=== PATIENT | female | born 1940 | race Two or more races ===

== ENCOUNTER → 2021-10-02 | Emergency (ER) | payer MEDICARE, OTHER ==
[~2021-10-02] VITALS: Ht 165.1 cm; Wt 72.6 kg
[~2021-10-02] MED LIST: HYDR-4209 PO; HYDROMORPHONE 1 MG/1 ML DISP.SYRIN IM ONE; HYDROMORPHONE 1 MG/1 ML DISP.SYRIN ONE; ONDANSETRON 4 MG TAB.RAPDIS ONE; ONDANSETRON 4 MG TAB.RAPDIS SL ONE
--- NOTE | 2021-10-02 22:30 | NUR ---
PATIENT BIBRA 889 FROM HOME FOR C/O RLE PAIN AND BACK PAIN FOR THE PAST FEW DAYS. PATIENT IS A/O X 4, RR EVEN AND UNLABORED, NO SOB NOTE. PATIENT TAKEN TO ER BED 10, VSS.
--- NOTE | 2021-10-02 22:52 | NUR ---
RAD AT BEDSIDE
--- NOTE | 2021-10-02 23:41 | NUR ---
Patient discharged to home in stable condition. RX Written and verbal after care instructions given. Patient verbalizes understanding of instruction. DC via W/C with family member
[2021-10-02 23:42] VITALS: BP 147/76
== END | disposition home or self-care (01) ==
LOC: ER 21:21
DX: M25.551 Pain in right hip (principal); M54.50 Low back pain, unspecified; I10 Essential (primary) hypertension; M19.90 Unspecified osteoarthritis, unspecified site; G30.9 Alzheimer's disease, unspecified; F02.80 Dementia in other diseases classified elsewhere, unspecified severity, without behavioral disturbance, psychotic disturbance, mood disturbance, and anxiety
CPT/HCPCS: 99283; 96372; 73502; Q0162; J1170

== ENCOUNTER 2021-11-01 21:02 | Inpatient (IN) | payer MEDICARE, OTHER ==
[~2021-11-01] VITALS: Ht 165.1 cm; Wt 55.8 kg
[~2021-11-01 21:02] MED LIST changes: -HYDROMORPHONE 1 MG/1 ML DISP.SYRIN IM ONE; -HYDROMORPHONE 1 MG/1 ML DISP.SYRIN ONE; -ONDANSETRON 4 MG TAB.RAPDIS ONE; -ONDANSETRON 4 MG TAB.RAPDIS SL ONE
--- NOTE | 2021-11-01 21:25 | NUR ---
BIBDAUGHTER. AGGRESSIVE TOWARD FAMILY & CAREGIVER. ALSO C/O BACK PAIN. AMBULATORY, PLACED ON BED, AWAKE ALERT FOLLOWS COMMAND, CALM.
--- NOTE | 2021-11-01 21:29 | NUR ---
URINE COLLECTED AND SENT TO LAB
--- NOTE | 2021-11-01 22:00 | NUR ---
AT BED SIDE
--- NOTE | 2021-11-01 22:29 | NUR ---
SWAB FOR COVID19 SENT TO LAB
--- NOTE | 2021-11-01 22:50 | NUR ---
X-RAY TECH AT BED SIDE
[2021-11-01 22:59] LABS: BASOPHILS % (AUTO) 0.2 % (0.0-2.0); EOSINOPHILS % (AUTO) 0.7 % (0.0-6.0); HEMATOCRIT 36 % (33-45); HEMOGLOBIN 11.7 g/dL (11.5-14.8); LYMPHOCYTES # (AUTO) 1.1 K/uL (0.8-4.8); LYMPHOCYTES % (AUTO) 15.2 % (20.0-44.0); MEAN CORPUSCULAR HGB CONC 32 g/dl (31.0-36.0); MEAN CORPUSCULAR VOLUME 82 fL (82-100); MONOCYTES # (AUTO) 0.4 K/uL (0.1-1.30); MONOCYTES % (AUTO) 5.3 % (2.0-12.0); NEUTROPHILS # (AUTO) 5.6 K/uL (1.8-8.9); NEUTROPHILS % (AUTO) 78.6 % (43.0-81.0); PLATELET COUNT (AUTO) 322 K/uL (150-450); RED BLOOD CELL COUNT(AUTO) 4.39 MIL/uL (4.0-5.2); WHITE BLOOD COUNT (AUTO) 7.1 K/uL (4.3-11.0)
[2021-11-01 23:15] LABS: CALCIUM, SERUM 8.8 mg/dL (8.5-10.1); CARBON DIOXIDE 30 mmol/L (21-32); CHLORIDE 103 mmol/L (98-107); CREATININE 0.8 mg/dL (0.6-1.3); GLUCOSE 140 mg/dL (74-106); POTASSIUM 4.1 mmol/L (3.5-5.1); SODIUM SERUM 141 mmol/L (136-145); UREA NITROGEN, BLOOD 18 mg/dL (7-18)
[2021-11-01 23:22] LABS: ALANINE AMINOTRANSFERASE 17 U/L (12-78); ALCOHOL, BLOOD < 3 mg/dL (0-0); ALKALINE PHOSPHATASE 127 U/L (46-116); ASPARTATE AMINOTRANSFERASE 13 U/L (15-37); BILIRUBIN,DIRECT 0.2 mg/dL (0.0-0.2); BILIRUBIN,TOTAL 0.9 mg/dL (0.2-1.0); TOTAL PROTEIN, SERUM 7.7 g/dL (6.4-8.2)
[2021-11-01 23:24] LABS: ACETAMINOPHEN 0 ug/ml (10-30)
[2021-11-01 23:29] LABS: BILIRUBIN,URINE MODERATE (NEGATIVE); COLOR,URINE YELLOW (YELLOW); LEUKOCYTE ESTERASE ,URINE SMALL (NEGATIVE); NITRITE, URINE NEGATIVE (NEGATIVE); PH,URINE 5.5 (5.0-8.0); PROTEIN,URINE 30 mg/dl (NEGATIVE); UGLUCOSE NEGATIVE (NEGATIVE)
[2021-11-01 23:58] LABS: BACTERIA,URINE Moderate /HPF (None Seen); CALCIUM OXALATE CRYSTALS,UR Many /HPF (None Seen); MUCUS,URINE Few /LPF (None Seen); SQUAMOUS EPITHELIAL CELL,UR Few /HPF (None Seen); WBC,URINE 21-50 /HPF (0-3)
[2021-11-02] MEDS ORDERED: Z GUARD REMEDY 4 OZ OINT TP PRN (01:00)
[2021-11-02] MEDS ORDERED: ONDANSETRON HCL/PF 4 MG/2 ML VIAL IVP PRN (01:00)
[2021-11-02] MEDS ORDERED: ACETAMINOPHEN 325 MG TABLET PO PRN (01:00)
[2021-11-02] MEDS ORDERED: MAG HYDROX/AL HYDROX/SIMETH 30 ML UDC PO PRN (01:00)
[2021-11-02] MEDS ORDERED: MAGNESIUM HYDROXIDE 30 ML UDC PO PRN (01:00)
[2021-11-02] MEDS ORDERED: ROSU40TA23 PO (01:01)
[2021-11-02] MEDS ORDERED: BUSP5TAB3 PO (01:01)
[2021-11-02] MEDS ORDERED: MECL-159 PO (01:01)
[2021-11-02] MEDS ORDERED: MELO-105 PO (01:01)
[2021-11-02] MEDS ORDERED: PROP10TA10 PO (01:01)
[2021-11-02] MEDS ORDERED: PRIM50TA27 PO (01:01)
[2021-11-02] MEDS ORDERED: SERT100T PO (01:01)
[2021-11-02] MEDS ORDERED: QUET50TA PO (01:01)
[2021-11-02] MEDS ORDERED: [UNRECOGNIZED DRUG - CODE] PO (01:01)
[2021-11-02] MEDS ORDERED: ACET650T12 PO (01:01)
--- NOTE | 2021-11-02 01:34 | NUR ---
REPORT GIVEN TO FELIX
--- NOTE | 2021-11-02 02:23 | NUR ---
PT TRANSPORTED 117 VIA GURNEY IN STABLE CONDITION
--- NOTE | 2021-11-02 02:25 | NUR ---
ADMISSION NOTES PT ARRIVED VIA GURNEY ACCOMPANIED BY EMT AT APPROXIMATELY 0225. AOx2. ON RA AND TOLERATING WELL. NO SOB NOTED. NO S/SX OF RESPIRATORY DISTRESS NOTED. IV ACCESS IN L HAND #22G. IV IS INTACT, PATENT, AND FLUSHING WELL. SKIN IS INTACT. SAFETY PRECAUTIONS IN PLACE: BED IN LOWEST, LOCKED POSITION, SIDERAILS UPx2, AND BRAKES ON. TABLE AND CALL LIGHT WITHIN REACH. WILL CONTINUE PLAN OF CARE. Addendum: 11/02/21 at 0316 by TAMARA VALLADARES RN PT ALSO HAS FAKE HUNDRED DOLLAR BILLS WITNESSED BY E [employer] MARKETING MANAGER, JNI HILTON, TAMARA, AND AZEEM CRAWFORD.
[2021-11-02 02:38] VITALS: BP 122/81
--- NOTE | 2021-11-02 06:46 | NUR ---
RN CLOSING NOTES PT IN BED, ASLEEP, AWAKENS TO VERBAL STIMULI. AOx2. ON RA AND TOLERATING WELL. NO SOB NOTED. NO S/SX OF RESPIRATORY DISTRESS NOTED. IV ACCESS IN L HAND #22G. IV IS INTACT, PATENT, AND FLUSHING WELL. SKIN IS INTACT. ALL ORDERS CARRIED OUT. ALL NEEDS MET. PT KEPT CLEAN AND DRY. SAFETY PRECAUTIONS IN PLACE: BED IN LOWEST, LOCKED POSITION, SIDERAILS UPx2, AND BRAKES ON. TABLE AND CALL LIGHT WITHIN REACH. WILL ENDORSE TO ONCOMING SHIFT FOR JEN.
[2021-11-02] MEDS: PANTOPRAZOLE 40 MG TABLET.DR PO SCH ×2 (07:30→08:26)
--- NOTE | 2021-11-02 07:40 | NUR ---
RN NOTE PT REFUSED MEDS. KEPT CLOSING THE DOOR. BECAME COMBATIVE. NOTIFIED NURSING SUPPLY PLANNER. NOTIFIED DR FERRARI FOR PSYCH EVAL.
--- NOTE | 2021-11-02 07:42 | NUR ---
RN OPENING NOTES RECEIVED PT IN BED AOx2. BREATHING IN ROOM AIR WITH 02 SAT OF 96%. NO S/SX OF RESPIRATORY DISTRESS NOTED. IV ACCESS IN L HAND #22G INTACT, PATENT, AND FLUSHING WELL. SKIN IS INTACT. SAFETY PRECAUTIONS IN PLACE: BED IN LOWEST, LOCKED POSITION, SIDE RAILS UPx2, AND BRAKES ON.TABLE AND CALL LIGHT WITHIN REACH.
--- NOTE | 2021-11-02 07:50 | NUR ---
RN NOTE CALLED SECURITY TO INSPECT PATIENTS BELONGINGS FOR CIGARETTE AND TANK MAKER WOOD. PATIENT STILL REFUSED MEDS.
[2021-11-02] MEDS: CEPHALEXIN MONOHYDRATE 500 MG CAPSULE PO SCH ×2 (08:27→09:00)
[2021-11-02] MEDS: SERTRALINE HCL 50 MG TABLET PO SCH ×2 (08:27→09:00)
[2021-11-02] MEDS: ATORVASTATIN 40 MG TABLET PO SCH ×2 (08:27→09:00)
--- NOTE | 2021-11-02 10:32 | NUR ---
telegraph dispatcher note dr chapa tub tender at bedside ,updated patient condition , ordered Seroquel 12,5 po q6 hour prn first dose now , order carried out
[2021-11-02] MEDS ORDERED: QUETIAPINE FUMARATE 25 MG TABLET PO PRN (11:00)
[2021-11-02] MEDS: NITROFURANTOIN/MONOHYDRATE MACROCRYSTALS 100 MG CAPSULE PO SCH ×2 (13:22→21:53)
[2021-11-02] MEDS ORDERED: LORAZEPAM INJ 2 MG/ML VIAL IV ONE (13:30)
[2021-11-02] MEDS ORDERED: QUETIAPINE FUMARATE 25 MG TABLET PO SCH ×2 (17:00→22:00)
[2021-11-02] MEDS ORDERED: busPIRone 5 MG TABLET PO SCH (17:00)
[2021-11-02] MEDS ORDERED: OLANZAPINE 10 MG VIAL IM STA (18:44)
--- NOTE | 2021-11-02 18:47 | NUR ---
MS RN NOTE PATIENT BECOME VERY AGITATED TRYING TO LOCKED UP SELF IN BATHROOM , AND NONCOMPLIANT WITH CARE , CALLED TO DR ROSE PSYCHIATRIST WITH ORDER ZYPREXA 3 MG IM TIME ONE , ORDER CARRIED OUT
--- NOTE | 2021-11-02 19:10 | NUR ---
RN NOTE REPORT RECEIVED FROM FREDY ABDI, PT SEATED UPRIGHT AT EDGE OF BED, CONFUSED AND AGITATED, ZYPREXA 3 MG IM ADMINISTERED BY AM RN PER MD ORDER. BREATHING EVEN AND UNLABORED. PT REFUSES TREATMENT INCLUDING VITAL SIGNS. IV LINE A L HAND 22G PATENT AND FLUSHING WELL. SAFETY MEASURES IN PLACE, BED IS LOCKED AND AT LOWEST POSITION, BED ALARM ON, CALL LIGHT WITHIN REACH OF PATIENT. WILL CONT TO MONITOR PATIENT. AWAITING MEDICAL CLEARANCE FROM DR FERRARI FOR PATIENT TO BE SEEN BY CRISIS TEAM AND POSSIBLE TRANSFER TO GPS.
--- NOTE | 2021-11-02 19:51 | NUR ---
RN CLOSING NOTES PT IN BED, ASLEEP, AWAKENS TO VERBAL STIMULI. AOx2. ON RA WITH 02 SAT OF 98%. NO SOB NOTED. NO S/SX OF RESPIRATORY DISTRESS NOTED. IV ACCESS IN L HAND #22G. IV IS INTACT, PATENT, AND FLUSHING WELL. SKIN IS INTACT. SAFETY PRECAUTIONS IN PLACE: BED LOCKED, IN LOWEST POSITION, SIDERAILS UPx2. CALL LIGHT WITHIN REACH. WILL ENDORSE TO ONCOMING SHIFT FOR JEN.
--- NOTE | 2021-11-02 23:20 | NUR ---
RN NOTE EYAD FROM CRISIS TEAM PRESENT AT BEDSIDE FOR EVALUATION.
[2021-11-03] VITALS: BP 121/72
--- NOTE | 2021-11-03 02:12 | NUR ---
REPORT GIVEN TO PHIL ABDI/GPS
[2021-11-03 04:00] VITALS: BP 121/72
--- NOTE | 2021-11-03 06:15 | NUR ---
RN NOTE PATIENT TRANSFERRED TO GPS 219-2 IN STABLE CONDITION. ALL BELONGINGS SENT WITH PATIENT. ENDORSED TO PHIL ABDI FOR CONTINUATION OF CARE.
[2021-11-03 06:40] LABS: BASOPHILS % (AUTO) 0.3 % (0.0-2.0); EOSINOPHILS % (AUTO) 1.9 % (0.0-6.0); HEMATOCRIT 33 % (33-45); HEMOGLOBIN 11.1 g/dL (11.5-14.8); LYMPHOCYTES # (AUTO) 1.6 K/uL (0.8-4.8); LYMPHOCYTES % (AUTO) 26.3 % (20.0-44.0); MEAN CORPUSCULAR HGB CONC 33 g/dl (31.0-36.0); MEAN CORPUSCULAR VOLUME 82 fL (82-100); MONOCYTES # (AUTO) 0.6 K/uL (0.1-1.30); NEUTROPHILS # (AUTO) 3.7 K/uL (1.8-8.9); NEUTROPHILS % (AUTO) 61.5 % (43.0-81.0); PLATELET COUNT (AUTO) 281 K/uL (150-450); RED BLOOD CELL COUNT(AUTO) 4.05 MIL/uL (4.0-5.2)
[2021-11-03 07:12] LABS: CALCIUM, SERUM 8.9 mg/dL (8.5-10.1); CARBON DIOXIDE 28 mmol/L (21-32); CHLORIDE 100 mmol/L (98-107); CREATININE 0.6 mg/dL (0.6-1.3); GLUCOSE 104 mg/dL (74-106); MAGNESIUM 2.1 mg/dL (1.8-2.4); PHOSPHORUS 4.1 mg/dL (2.5-4.9); POTASSIUM 3.3 mmol/L (3.5-5.1); SODIUM SERUM 137 mmol/L (136-145); UREA NITROGEN, BLOOD 12 mg/dL (7-18)
[2021-11-03 07:13] LABS: THYROID STIMULATING HORMONE 4.092 uIU/mL (0.358-3.74)
== END 2021-11-03 06:51 | DRG 689 ==
LOC: ER 21:16 → MEDSG1 11-02 01:19
PROVIDERS: ADMIT Registered Nurse; ATTEND Nurse Practitioner Family
DX: N39.0 Urinary tract infection, site not specified (principal); G93.41 Metabolic encephalopathy; M48.56XA Collapsed vertebra, not elsewhere classified, lumbar region, initial encounter for fracture; F33.3 Major depressive disorder, recurrent, severe with psychotic symptoms; M16.11 Unilateral primary osteoarthritis, right hip; G30.9 Alzheimer's disease, unspecified; Z20.822 Contact with and (suspected) exposure to COVID-19; R29.6 Repeated falls; I10 Essential (primary) hypertension; G89.29 Other chronic pain; Z73.6 Limitation of activities due to disability; F02.80 Dementia in other diseases classified elsewhere, unspecified severity, without behavioral disturbance, psychotic disturbance, mood disturbance, and anxiety; B96.89 Other specified bacterial agents as the cause of diseases classified elsewhere; F29 Unspecified psychosis not due to a substance or known physiological condition; F41.9 Anxiety disorder, unspecified; M47.816 Spondylosis without myelopathy or radiculopathy, lumbar region
CPT/HCPCS: 36415; 72110-TC; 80048-TC; 80076-TC; 81001; 83735-TC; 84100-TC; 84443-TC; 85025-TC; 87086-TC; 97116-TC; 97530-TC; C9803; G0378; G0480; J2060; J3490

== ENCOUNTER 2021-11-03 02:09 | Inpatient (IN) | payer MEDICARE, OTHER ==
[~2021-11-03] VITALS: Ht 165.1 cm; Wt 55.8 kg
[~2021-11-03 02:09] MED LIST changes: +ACET650T12 PO; +BUSP5TAB3 PO; +MECL-159 PO; +MELO-105 PO; +PRIM50TA27 PO; +PROP10TA10 PO; +QUET50TA PO; +ROSU40TA23 PO; +SERT100T PO; +[UNRECOGNIZED DRUG - CODE] PO
--- NOTE | 2021-11-03 06:10 | NUR ---
GPS ADMISSION NOTE, RECEIVED PATIENT FROM [facility]. PATIENT ARRIVED ON THIS UNIT AT 0610 VIA STRETCHER WITH 1 BESSEMER CONVERTER OPERATOR ESCORT. PATIENT ADMITTED ON A 5150 HOLD FOR GD AND DTO. PER HOLD PATIENT IS CONFUSED AND DOES NOT MAKE SENSE WHEN SPEAKING. PATIENT DAUGHTER REPORTED THAT HER MOTHER HAS HAD INCREASED AGITATION, YELLING, REFUSING MEDICATION, AND NOT FOLLOWING DIRECTIONS. THE 5150 WAS REVIEWED AND THE DOCUMENTATION IN THE 5150 HOLD APPEARS TO REFLECT THE PRESENTATION OF THE PATIENT. UPON FACE TO FACE ASSESSMENT PATIENT IS NOTED TO BEING HYPERVERBAL, DISHEVELED, DISORGANIZED, DEMANDING, UNCOOPERATIVE, AND NEEDS REDIRECTION. PATIENT IS CURRENTLY LYING IN BED AWAKE, HAS NO S/S OR COMPLAINTS OF PAIN. PATIENT IS DISPLAYING NO S/S OF APPARENT DISTRESS. PATIENT BREATHING IS UNLABORED WITH EQUAL RISE AND FALL OF THE CHEST. PATIENT IS ALERT AND ORIENTATED X 1 ON ROOM AIR. PATIENT ASSISTED WITH TURING AND REPOSITIONING Q2HR AND PRN FOR COMFORT AND CIRCULATION. PATIENT HAS NO NEEDS AT THIS TIME. PATIENT DENIES SUICIDE IDEATIONS AND HOMICIDAL IDEATIONS AT THIS TIME. PATIENT REFUSED TO SIGNS ANY PAPER WORK AND THINKS THIS IS ALL A MISTAKE. PATIENT ADVISED OF HER HOLD AND PATIENT RIGHTS BOOKLET GIVEN. PATIENT IS UNDER THE PSYCHIATRIC CARE OF DR. ROSE AND THE MEDICAL CARE OF DR CISNEROS. PATIENT BELONGINGS WERE INVENTORIED AND CHECKED FOR CONTRABAND. ALL CONTRABAND REMOVED AND STORED IN PATIENT HALLWAY LOCKER. PATIENT ADVANCED DIRECTIVES PREFERENCE, IMMUNIZATIONS QUESTIONER, NECESSARY PAPERWORK COMPLETED. PATIENT REFUSED SKIN ASSESSMENT. PATIENT ORIENTATED TO ROOM, FLOOR, AND STAFF WITH ALL QUESTIONS ANSWERED. PATIENT EDUCATED ON THE USE OF THE CALL SHAH. PATIENT BED SIDE RAILS ARE UP X 2 FOR SAFETY. PATIENT BED IS LOCKED, LOW AND I WILL CONTINUE TO MONITOR THIS PATIENT Q 15 MIN WITH THE HELP OF STAFF TO MAINTAIN SAFETY.
[2021-11-03] MEDS ORDERED: MAG HYDROX/AL HYDROX/SIMETH 30 ML UDC PO PRN (06:30)
[2021-11-03] MEDS ORDERED: MAGNESIUM HYDROXIDE 30 ML UDC PO PRN (06:30)
[2021-11-03] MEDS ORDERED: BLOOD SUGAR DIAGNOSTIC 1 EACH STRIP IN ONE (06:30)
[2021-11-03 08:00] VITALS: BP 131/65
--- NOTE | 2021-11-03 10:15 | NUR ---
SOLO Initial Discharge Plan: Pt resides at home with daughter Robin ([phone]) located at [address] [place] [address]; ([phone]). SOLO will contact patient's daughter Robin ([phone]) to discuss treatment and discharge plan. SOLO will work with the MD and treatment team to help coordinate appropriate discharge.
--- NOTE | 2021-11-03 10:16 | NUR ---
SOLO Clinical Note: Pt placed on a 5150 hold for danger to others and GD. Per hold, pt was aggressive on the medical floor and was uncooperative with treatment. Pt resides at home with daughter Robin ([phone]) located at [address] [place] [address]; ([phone]). SW will contac patient's daughter Robin ([phone]) to discuss treatment and discharge plan.
--- NOTE | 2021-11-03 10:16 | NUR ---
Treatment Plan: Pt refused to sign treatment plan due to her confusion and was uncooperative.
--- NOTE | 2021-11-03 10:45 | NUR ---
RN-NOTES PATIENT SITTING ON THE FLOOR IN THE HALLWAY NEXT TO PATIENTS PHONE PERRY TALKING TO OTHER PATIENT. UPON ASSESSMENT PATIENT CLAIMED THAT THE STAFF PUSHED HER AND POINTING TO THE MOLD INSPECTOR , PER MOLD INSPECTOR STAFF SHE WITNESS THAT PATIENT DID PURPOSELY SIT ON THE FLOOR,SHE DID NOT PUSH HER. DR. ROSE IN THE UNIT AND MADE AWARE AND TALK TO THE PATIENT.PATIENT WAS ASSISTED UP TO THE SONAL CHAIR AND BROUGHT TO THE DAY ROOM.
[2021-11-03] MEDS: QUETIAPINE FUMARATE 25 MG TABLET PO SCH ×3 (12:26→21:43)
--- NOTE | 2021-11-03 13:08 | NUR ---
SOLO Family Contact: SOLO contacted patient's daughter Robin ([phone]) and discussed treatment/discharge plan. She stated that pt will be needing a nursing facility and unable to care for pt at home. She reported at home pt was hiding her medications. SOLO will notify staff.
[2021-11-03] MEDS: ACETAMINOPHEN 325 MG TABLET PO PRN (13:34)
--- NOTE | 2021-11-03 13:53 | NUR ---
NURSE NOTES: PT C/O GENERALIZED PAIN. UNABLE TO STATE NUMBER, BUT SAYS THAT SHE'S IN A LOT OF PAIN. TYLENOL GIVEN. WILL MONITOR FOR PAIN RELIEF.
[2021-11-03] MEDS: NITROFURANTOIN/MONOHYDRATE MACROCRYSTALS 100 MG CAPSULE PO SCH ×2 (14:17→20:31)
--- NOTE | 2021-11-03 14:30 | NUR ---
NURSE NOTE: PT CALM IN CHAIR. NO S/S OF PAIN AT THIS TIME. WILL CONTINUE TO MONITOR.
[2021-11-03 16:00] VITALS: BP 105/52
[2021-11-03] MEDS: PROPRANOLOL HCL 10 MG TABLET PO SCH (16:46)
[2021-11-03 20:00] VITALS: BP 89/58
[2021-11-03] MEDS: ATORVASTATIN 40 MG TABLET PO SCH (21:42)
[2021-11-03] MEDS ORDERED: Medication Not On Formulary EA (Rosuvastatin Calcium 40 MG) PO SCH (22:00)
[2021-11-03] MEDS: TEMAZEPAM 7.5 MG CAPSULE PO PRN (22:17)
--- NOTE | 2021-11-03 22:20 | NUR ---
Pt remains awake, unable to sleep and relax, getting out of bed couple of times, denies pain/ discomfort, PRN Restoril for insomnia given, pt compliant and took all her due medications. Will cont to monitor pt's safety and anticipate needs.
--- NOTE | 2021-11-04 00:05 | NUR ---
Pt comfortably sleeping at this time,no s/sx of resp distress noted, easy to arouse. Will cont to monitor and anticipate needs.
[2021-11-04 07:18] LABS: BASOPHILS % (AUTO) 0.4 % (0.0-2.0); EOSINOPHILS % (AUTO) 3.6 % (0.0-6.0); HEMATOCRIT 35 % (33-45); HEMOGLOBIN 11.3 g/dL (11.5-14.8); LYMPHOCYTES # (AUTO) 1.6 K/uL (0.8-4.8); MEAN CORPUSCULAR HGB CONC 32 g/dl (31.0-36.0); MEAN CORPUSCULAR VOLUME 83 fL (82-100); MONOCYTES # (AUTO) 0.5 K/uL (0.1-1.30); MONOCYTES % (AUTO) 9.2 % (2.0-12.0); NEUTROPHILS # (AUTO) 3.4 K/uL (1.8-8.9); NEUTROPHILS % (AUTO) 58.8 % (43.0-81.0); PLATELET COUNT (AUTO) 308 K/uL (150-450); RED BLOOD CELL COUNT(AUTO) 4.23 MIL/uL (4.0-5.2); WHITE BLOOD COUNT (AUTO) 5.8 K/uL (4.3-11.0)
[2021-11-04 07:44] LABS: CALCIUM, SERUM 9.3 mg/dL (8.5-10.1); CARBON DIOXIDE 29 mmol/L (21-32); CHLORIDE 99 mmol/L (98-107); CREATININE 0.8 mg/dL (0.6-1.3); GLUCOSE 105 mg/dL (74-106); POTASSIUM 3.1 mmol/L (3.5-5.1); SODIUM SERUM 136 mmol/L (136-145); UREA NITROGEN, BLOOD 20 mg/dL (7-18)
[2021-11-04 07:51] LABS: CHOLESTEROL 192 mg/dL (<200); HDL CHOLESTEROL 45 mg/dL (40-60); LDL 129 mg/dL (0-99); TRIGLYCERIDES 131 mg/dL (30-150)
[2021-11-04 08:00] VITALS: BP 120/64
[2021-11-04] MEDS: NITROFURANTOIN/MONOHYDRATE MACROCRYSTALS 100 MG CAPSULE PO SCH ×2 (09:32→20:44)
[2021-11-04] MEDS: PRIMIDONE 50 MG TABLET PO SCH (09:32)
[2021-11-04] MEDS: QUETIAPINE FUMARATE 25 MG TABLET PO SCH ×4 (09:33→21:53)
[2021-11-04] MEDS: PROPRANOLOL HCL 10 MG TABLET PO SCH ×2 (09:33→17:00)
[2021-11-04] MEDS: POTASSIUM CHLORIDE 20 MEQ TAB.PRT.SR PO SCH ×2 (12:29→13:36)
[2021-11-04] MEDS: LORAZEPAM 0.5 MG TABLET PO PRN (13:36)
[2021-11-04] MEDS ORDERED: POTASSIUM CHLORIDE 20 MEQ TAB.PRT.SR PO SCH (14:00)
[2021-11-04 16:00] VITALS: BP 112/71
[2021-11-04 20:10] VITALS: BP 114/72
[2021-11-04 20:32] VITALS: BP 114/72
[2021-11-04] MEDS: ATORVASTATIN 40 MG TABLET PO SCH (21:53)
--- NOTE | 2021-11-05 05:17 | NUR ---
RN NOTE PATIENT IS AWAKE AT THIS TIME, ASSISTED THE PATIENT TO THE RESTROOM, PER DAUGHTER REQUEST, OFFERED WALKER AND WHEELCHAIR FOR ASSISTANCE TO WALK BUT PATIENT STRONGLY REFUSED TO USE WALKER OR WHEELCHAIR AND PUSHED WALKER AWAY FROM HER, PATIENT STATED," I DON'T NEED IT, I CAN WALK, DON'T HOLD ME WHEN NURSE TRIED TO ASSIST THE PATIENT." PATIENT IS VERY CONFUSED, EASILY AGITATED/RESTLESS, UNCOOPERATIVE WITH USING ASSISTIVE DEVICE SAFELY. BED ALARM KEPT ON FOR SAFETY. WILL CONTINUE TO MONITOR FOR SAFETY AND BEHAVIOR.
[2021-11-05 08:00] VITALS: BP 116/73
[2021-11-05] MEDS: NITROFURANTOIN/MONOHYDRATE MACROCRYSTALS 100 MG CAPSULE PO SCH ×2 (08:41→21:04)
[2021-11-05] MEDS: PROPRANOLOL HCL 10 MG TABLET PO SCH ×2 (08:43→16:54)
[2021-11-05] MEDS: PRIMIDONE 50 MG TABLET PO SCH (08:43)
[2021-11-05] MEDS: QUETIAPINE FUMARATE 25 MG TABLET PO SCH ×4 (08:44→21:04)
--- NOTE | 2021-11-05 10:00 | NUR ---
PATIENT STARTED AGITATED, SCREAMING, AT DINING ROOM AND REFUSED INTAKE ATIVAN. INFORMED DR. ROSE, NEW ORDER ZYPREXA 5MG IM, NOTED AND CARRY OUT. WILL CONTINUE TO MONITOR CLOSELY FOR PATIENT SAFETY.
[2021-11-05] MEDS ORDERED: OLANZAPINE 10 MG VIAL IM ONE (11:00)
[2021-11-05] MEDS: LORAZEPAM 0.5 MG TABLET PO PRN (11:31)
[2021-11-05 16:00] VITALS: BP 120/66
[2021-11-05 20:34] VITALS: BP 117/56
[2021-11-05] MEDS: TEMAZEPAM 7.5 MG CAPSULE PO PRN (21:04)
[2021-11-05] MEDS: ATORVASTATIN 40 MG TABLET PO SCH (21:04)
--- NOTE | 2021-11-06 00:49 | NUR ---
Patient refuses weekly skin assessment.
[2021-11-06 08:00] VITALS: BP 147/96
[2021-11-06] MEDS: QUETIAPINE FUMARATE 25 MG TABLET PO SCH ×3 (09:17→18:06)
[2021-11-06] MEDS: NITROFURANTOIN/MONOHYDRATE MACROCRYSTALS 100 MG CAPSULE PO SCH ×2 (09:17→21:18)
[2021-11-06] MEDS: PROPRANOLOL HCL 10 MG TABLET PO SCH ×2 (09:19→17:23)
[2021-11-06] MEDS: PRIMIDONE 50 MG TABLET PO SCH (09:19)
[2021-11-06] MEDS: LORAZEPAM 0.5 MG TABLET PO PRN (12:42)
--- NOTE | 2021-11-06 12:42 | NUR ---
Patient agitated and medicated with Ativan 0.5mg x1 will continue to monitor .
[2021-11-06 16:00] VITALS: BP 104/66
[2021-11-06 20:05] VITALS: BP 126/61
[2021-11-06 20:57] VITALS: BP 126/61
[2021-11-06] MEDS ORDERED: QUETIAPINE FUMARATE 25 MG TABLET PO SCH (22:00)
[2021-11-06] MEDS: ATORVASTATIN 40 MG TABLET PO SCH (22:02)
[2021-11-07] MEDS: LORAZEPAM 0.5 MG TABLET PO PRN ×2 (07:59→13:57)
[2021-11-07 08:00] VITALS: BP 117/59
[2021-11-07] MEDS: NITROFURANTOIN/MONOHYDRATE MACROCRYSTALS 100 MG CAPSULE PO SCH ×2 (08:16→20:25)
[2021-11-07] MEDS: PROPRANOLOL HCL 10 MG TABLET PO SCH ×2 (08:16→16:34)
[2021-11-07] MEDS: QUETIAPINE FUMARATE 25 MG TABLET PO SCH ×2 (08:16→16:34)
[2021-11-07] MEDS: PRIMIDONE 50 MG TABLET PO SCH (08:17)
--- NOTE | 2021-11-07 08:30 | NUR ---
RN NOTE PATIENT WAS ARGUMENTATIVE AND AGITATED. PATIENT IS DISORIENTED AND WAS LOOKING FOR HER SON AND DAUGHTER. PATIENT REORIENTED AND WAS GIVEN MEDICATION AND ATIVAN TO CALM PATIENT DOWN. PATIENT CLOSELY MONITORED. IN STABLE CONDITION.
--- NOTE | 2021-11-07 11:15 | NUR ---
RN NOTE PATIENT SEEN BY DAUGHTER. PATIENT CONVERSANT WITH DAUGHTER AND WAS VERY PLEASED WITH HER DAUGHTER VISITING HER.
--- NOTE | 2021-11-07 15:48 | NUR ---
SNF Referral: SOLO faxed clinicals to [facility] FAX: [phone] TEL: [phone]
[2021-11-07 16:00] VITALS: BP 115/72
[2021-11-07 20:28] VITALS: BP 121/60
[2021-11-07 20:58] VITALS: BP 121/60
[2021-11-07] MEDS: ATORVASTATIN 40 MG TABLET PO SCH (21:13)
[2021-11-07] MEDS ORDERED: QUETIAPINE FUMARATE 25 MG TABLET PO SCH (22:00)
[2021-11-08 08:00] VITALS: BP 128/70
[2021-11-08] MEDS: NITROFURANTOIN/MONOHYDRATE MACROCRYSTALS 100 MG CAPSULE PO SCH ×2 (09:13→22:01)
[2021-11-08] MEDS: QUETIAPINE FUMARATE 25 MG TABLET PO SCH (09:13)
[2021-11-08] MEDS: PRIMIDONE 50 MG TABLET PO SCH (09:14)
[2021-11-08] MEDS: PROPRANOLOL HCL 10 MG TABLET PO SCH ×2 (09:14→16:26)
--- NOTE | 2021-11-08 09:36 | NUR ---
RN NOTES: PATIENT NOTED WITH ON AND OFF SCREAMING AND YELLING, ONCE RECOGNIZED SHE WILL BE QUIET.
[2021-11-08] MEDS: DIVALPROEX SODIUM 125 MG CAP.SPRINK PO SCH ×2 (12:12→16:28)
[2021-11-08] MEDS: risperiDONE-M 0.5 MG TAB.RAPDIS PO SCH ×2 (12:12→16:26)
[2021-11-08 16:00] VITALS: BP 123/61
--- NOTE | 2021-11-08 16:40 | NUR ---
RN NOTES: PATIENT EAT ONLY 50% MOSTLY SHE'S PLAYING HER MEALS.
[2021-11-08 20:00] VITALS: BP 131/71
[2021-11-08] MEDS: ATORVASTATIN 40 MG TABLET PO SCH (22:02)
[2021-11-08] MEDS: TEMAZEPAM 7.5 MG CAPSULE PO PRN (22:16)
--- NOTE | 2021-11-09 00:40 | NUR ---
PATIENT REMAINS AWAKE WITH EPISODES OF YELLING AND SCREAMING TO STAFF. PRN RESTORIL 7.5 MG GIVEN VIA PO @ 2216 BUT INEFFECTIVE. STAFF AT BY SIDE FOR SAFETY MEASURE. PROVIDING A QUIET ENVIRONMENT TO PROMOTE SLEEP.
[2021-11-09 08:00] VITALS: BP 125/73
[2021-11-09] MEDS: NITROFURANTOIN/MONOHYDRATE MACROCRYSTALS 100 MG CAPSULE PO SCH ×2 (09:40→20:44)
[2021-11-09] MEDS: PROPRANOLOL HCL 10 MG TABLET PO SCH ×2 (09:40→16:49)
[2021-11-09] MEDS: DIVALPROEX SODIUM 125 MG CAP.SPRINK PO SCH ×2 (09:40→16:50)
[2021-11-09] MEDS: risperiDONE-M 0.5 MG TAB.RAPDIS PO SCH ×2 (09:40→17:11)
[2021-11-09] MEDS: PRIMIDONE 50 MG TABLET PO SCH (09:44)
--- NOTE | 2021-11-09 13:47 | NUR ---
SW followed up and [facility] FAX: [phone] TEL: [phone] regarding referral. SW left contact info.
--- NOTE | 2021-11-09 14:55 | NUR ---
[facility] SNF PLACEMENT: SW was notified by Karyna from admissions as [facility] [[address] [facility], [place] [address] ] that they are accepting this pt.
[2021-11-09 16:00] VITALS: BP 158/81
--- NOTE | 2021-11-09 19:01 | NUR ---
PT STAYED OUT IN [address] IN SONAL CHAIR WITH GRICELDA LOCKED, ABLE TO MAKE NEEDS KNOWN, EXPRESSED SELF , CUSSED CURSED THEN CALMED DOWN AFTER LUNCH, HAS NO TROUBLE SPEAKING HER MIND, ENCOURAGED WATER AND FLUID INTAKE, COMPLIANT WITH MEDICATIONS TOOK ALL PO MEDICATIONS AND NO ASPIRATION NOTED, MADE COMFORTABLE AND REPOSITIONED IN CHAIR BY SELF AND WILL ASSISTANCE Q 2 HOURS OR MORE PATIENT IS ABLE TO MAKE SELF COMFORTABLE. ALL SAFETY MEASURES IN PLACE
--- NOTE | 2021-11-09 19:36 | NUR ---
GPS RN OPENING NOTES: RECEIVED PATIENT DAY ROOM SITTING IN SONAL CHAIR. A/O X1. DISORGANIZED, DISORIENTED, CONFUSED, UNCOOPERATIVE, NEEDS FREQUENT REDIRECTION, POOR INSIGHT, POOR JUDGEMENT. NO S/S OF DISTRESS. RESPIRATION EVEN AND UNLABORED WITH EQUAL RISE AND FALL OF THE CHEST, ON ROOM AIR. OFFERED FLUID AND SNACKS TOLERATED. BED IN LOWEST POSITION AND LOCKED, SIDE RAILS UP X2 FOR SAFETY. WILL CONTINUE TO MONITOR Q15 FOR MOOD, SAFETY AND BEHAVIOR.
[2021-11-09 20:00] VITALS: BP 117/63
[2021-11-09] MEDS: ATORVASTATIN 40 MG TABLET PO SCH (21:01)
[2021-11-09] MEDS: TEMAZEPAM 7.5 MG CAPSULE PO PRN (21:02)
--- NOTE | 2021-11-09 21:05 | NUR ---
GPS RN NOTES: RESTORIL 7.5MG 1CAP GIVEN PO AT 2049. WILL CONTINUE TO MONITOR.
[2021-11-10 06:49] LABS: BASOPHILS % (AUTO) 0.3 % (0.0-2.0); EOSINOPHILS % (AUTO) 5.1 % (0.0-6.0); HEMATOCRIT 34 % (33-45); HEMOGLOBIN 11.1 g/dL (11.5-14.8); LYMPHOCYTES # (AUTO) 1.6 K/uL (0.8-4.8); LYMPHOCYTES % (AUTO) 28.6 % (20.0-44.0); MEAN CORPUSCULAR HGB CONC 32 g/dl (31.0-36.0); MEAN CORPUSCULAR VOLUME 82 fL (82-100); MONOCYTES # (AUTO) 0.4 K/uL (0.1-1.30); MONOCYTES % (AUTO) 8.2 % (2.0-12.0); NEUTROPHILS # (AUTO) 3.1 K/uL (1.8-8.9); NEUTROPHILS % (AUTO) 57.8 % (43.0-81.0); PLATELET COUNT (AUTO) 358 K/uL (150-450); RED BLOOD CELL COUNT(AUTO) 4.18 MIL/uL (4.0-5.2); WHITE BLOOD COUNT (AUTO) 5.4 K/uL (4.3-11.0)
--- NOTE | 2021-11-10 07:00 | NUR ---
GPR RN OPENING NOTES PATIENT IS CURRENTLY IN BED, INTERACTING WITH HER VISITORS. A/O X 2, LABILE, DISORGANIZED, DISORIENTED, CONFUSED, UNCOOPERATIVE, NEEDS FREQUENT REDIRECTION, POOR INSIGHT, POOR JUDGEMENT. NO S/S OF DISTRESS. RESPIRATION EVEN AND UNLABORED WITH EQUAL RISE AND FALL OF THE CHEST, ON ROOM AIR. OFFERED FLUID AND SNACKS TOLERATED. BED IN LOWEST POSITION AND LOCKED, SIDE RAILS UP X2 FOR SAFETY. WILL CONTINUE TO MONITOR Q15 FOR MOOD, SAFETY AND BEHAVIOR.
[2021-11-10 07:23] LABS: CALCIUM, SERUM 8.7 mg/dL (8.5-10.1); CREATININE 0.7 mg/dL (0.6-1.3); MAGNESIUM 2.1 mg/dL (1.8-2.4); POTASSIUM 3.9 mmol/L (3.5-5.1)
[2021-11-10 08:00] VITALS: BP 121/69
[2021-11-10] MEDS: PRIMIDONE 50 MG TABLET PO SCH ×2 (08:30→09:00)
[2021-11-10] MEDS: PROPRANOLOL HCL 10 MG TABLET PO SCH ×3 (08:30→16:18)
[2021-11-10] MEDS: DIVALPROEX SODIUM 125 MG CAP.SPRINK PO SCH ×4 (08:30→20:22)
[2021-11-10] MEDS: NITROFURANTOIN/MONOHYDRATE MACROCRYSTALS 100 MG CAPSULE PO SCH ×2 (08:30→09:00)
[2021-11-10] MEDS: risperiDONE-M 0.5 MG TAB.RAPDIS PO SCH ×4 (08:30→20:21)
--- NOTE | 2021-11-10 09:00 | NUR ---
PATIENT REFUSED ALL AM MEDICATIONS X 2
[2021-11-10 16:00] VITALS: BP 125/68
[2021-11-10] MEDS: BENZTROPINE MESYLATE (1 MG) 1 MG TABLET PO SCH (20:21)
[2021-11-10] MEDS: ATORVASTATIN 40 MG TABLET PO SCH (21:02)
[2021-11-10] MEDS: TEMAZEPAM 7.5 MG CAPSULE PO PRN (21:18)
[2021-11-10] MEDS: ACETAMINOPHEN 325 MG TABLET PO PRN (21:18)
[2021-11-10 21:21] VITALS: BP 119/77
[2021-11-11 08:00] VITALS: BP 107/60
[2021-11-11] MEDS: risperiDONE-M 0.5 MG TAB.RAPDIS PO SCH ×4 (08:00→21:24)
[2021-11-11] MEDS: DIVALPROEX SODIUM 125 MG CAP.SPRINK PO SCH ×4 (08:00→21:25)
[2021-11-11] MEDS: PROPRANOLOL HCL 10 MG TABLET PO SCH ×3 (09:00→17:46)
[2021-11-11] MEDS: PRIMIDONE 50 MG TABLET PO SCH ×2 (09:00→09:32)
[2021-11-11 16:00] VITALS: BP 123/76
--- NOTE | 2021-11-11 20:41 | NUR ---
GPR RN OPENING NOTES RECEIVED PATIENT IN BED WITH DAUGHTER A/O X 2, LABILE, DISORGANIZED, DISORIENTED, CONFUSED, POOR INSIGHT, POOR JUDGEMENT.ON RM AIR RAYNE WELL,NO SOB/DISTRESS NOTED,BREATHING EVEN AND UNLABORED,BED IN LOWEST POSITIONAND LOCKED, SIDE RAILS UP X2 FOR SAFETY. WILL CONTINUE TO MONITOR Q15 FOR MOOD, SAFETY AND BEHAVIOR.
[2021-11-11 21:02] VITALS: BP 115/73
[2021-11-11] MEDS: BENZTROPINE MESYLATE (1 MG) 1 MG TABLET PO SCH (21:14)
[2021-11-11] MEDS: ATORVASTATIN 40 MG TABLET PO SCH (21:25)
[2021-11-12 08:00] VITALS: BP 120/64
[2021-11-12] MEDS: DIVALPROEX SODIUM 125 MG CAP.SPRINK PO SCH ×3 (08:59→20:44)
[2021-11-12] MEDS: PROPRANOLOL HCL 10 MG TABLET PO SCH ×2 (09:00→17:00)
[2021-11-12] MEDS: risperiDONE-M 0.5 MG TAB.RAPDIS PO SCH ×3 (09:00→20:45)
[2021-11-12] MEDS: PRIMIDONE 50 MG TABLET PO SCH (09:00)
--- NOTE | 2021-11-12 09:00 | NUR ---
RN NOTE- PATIENT ON BED AWAKE, SCREAMING AND A/O X 2,LABILE, DISORGANIZED, DISORIENTED, CONFUSED, UNCOOPERATIVE, NEEDS FREQUENT REDIRECTION, POOR INSIGHT, POOR JUDGEMENT. DIAPER CHANGED. NO S/S OF DISTRESS, BREATHING WITHOUT DIFFICULTY ON ROOM AIR. OFFERED FLUID AND SNACKS TOLERATED. BED IN LOWEST POSITION AND LOCKED, SIDE RAILS UP X2 FOR SAFETY. WILL CONTINUE TO MONITOR Q15 FOR MOOD, SAFETY AND BEHAVIOR.
[2021-11-12 16:00] VITALS: BP 97/62
[2021-11-12 20:39] VITALS: BP 144/66
[2021-11-12] MEDS: BENZTROPINE MESYLATE (1 MG) 1 MG TABLET PO SCH (20:43)
[2021-11-12] MEDS: ATORVASTATIN 40 MG TABLET PO SCH (21:00)
[2021-11-13 08:00] VITALS: BP 132/69
[2021-11-13] MEDS: DIVALPROEX SODIUM 125 MG CAP.SPRINK PO SCH ×3 (08:52→20:45)
[2021-11-13] MEDS: PRIMIDONE 50 MG TABLET PO SCH (08:53)
[2021-11-13] MEDS: risperiDONE-M 0.5 MG TAB.RAPDIS PO SCH ×3 (08:53→20:46)
[2021-11-13] MEDS: PROPRANOLOL HCL 10 MG TABLET PO SCH ×2 (08:53→16:48)
--- NOTE | 2021-11-13 09:00 | NUR ---
RN NOTE- PATIENT ON BED AWAKE A/O X 2, LABILE, CONFUSED, UNCOOPERATIVE AT TIMES, NEEDS FREQUENT REDIRECTION, POOR INSIGHT, POOR JUDGEMENT. DIAPER CHANGED. NO S/S OF DISTRESS, BREATHING WITHOUT DIFFICULTY ON ROOM AIR. OFFERED FLUID AND SNACKS TOLERATED. BED IN LOWEST POSITION AND LOCKED, SIDE RAILS UP X2 FOR SAFETY. WILL CONTINUE TO MONITOR Q15 FOR MOOD, SAFETY AND BEHAVIOR.
--- NOTE | 2021-11-13 13:29 | NUR ---
SOLO Family Contact: SOLO received a call from patient's grand daughter Karley ([phone]) requesting for this junior technical writer to send clinicals to [facility].
--- NOTE | 2021-11-13 13:29 | NUR ---
SNF Referral: SW contacted [facility] ([phone]) spoke with Corrie GOMEZ (F:[phone]) and faxed clinicals for placement option. SW sent H & P, progress notes, and medication list.
--- NOTE | 2021-11-13 14:55 | NUR ---
SNF Contact: SW contacted [facility] ([phone]) spoke with Corrie GOMEZ ([phone]) and stated that they do not have any beds available.
--- NOTE | 2021-11-13 14:55 | NUR ---
SOLO Family Contact: SOLO contacted patient's grand daughter Karley ([phone]) and stated that they do not have any beds available.
[2021-11-13 16:00] VITALS: BP 135/59
--- NOTE | 2021-11-13 19:30 | NUR ---
GPS RN OPENING NOTES: RECEIVED PATIENT IN DAY ROOM SITTING IN SONAL CHAIR. A/O X1-2. AFFECT IS INCONGRUENT, PATIENT HAS LOOSE ASSOCIATIONS, DISORGANIZED, DISORIENTED, CONFUSED, NEEDS FREQUENT REDIRECTION, HAS POOR INSIGHT AND POOR JUDGEMENT. PATIENT HAS NO S/S OF DISTRESS. RESPIRATION EVEN AND UNLABORED WITH EQUAL RISE AND FALL OF THE CHEST, ON ROOM AIR. OFFERED FLUID AND SNACKS TOLERATED. WILL CONTINUE TO MONITOR Q15 FOR MOOD, SAFETY AND BEHAVIOR.
[2021-11-13] MEDS: BENZTROPINE MESYLATE (1 MG) 1 MG TABLET PO SCH (20:45)
--- NOTE | 2021-11-13 20:50 | NUR ---
GPS RN NOTES: COGENTIN 0.5MG WASTED PER PARTIAL DOSE ORDER.
[2021-11-13 20:55] VITALS: BP 109/48
[2021-11-13] MEDS: ATORVASTATIN 40 MG TABLET PO SCH (21:08)
--- NOTE | 2021-11-14 07:26 | NUR ---
GPS RN CLOSING NOTES: PATIENT IS LAYING CALMLY IN BED, AWAKE, A/O X1. PATIENT PATIENT SLEPT 8HR THIS SHIFT. PATIENT HAS NO S/S OF DISTRESS AT THIS TIME. RESPIRATION EVEN AND UNLABORED WITH EQUAL RISE AND FALL OF THE CHEST ON ROOM AIR. ALL PATIENT CARE NEEDS HAVE BEEN MET ANTICIPATED. WILL CONTINUE TO MONITOR AND ENDORSE TO AM SHIFT.
--- NOTE | 2021-11-14 07:30 | NUR ---
RN OPENING NOTE PATIENT IN BED AWAKE, ON ROOM AIR, BREATHING UNLABORED AND NOT IN ANY FORM OF DISTRESS. APPEARS CALM AND ABLE TO MAKE NEEDS KNOWN. ALL SAFETY PRECAUTIONS IN PLACE. WILL CONTINUE TO MONITOR.
[2021-11-14 08:00] VITALS: BP 114/62
[2021-11-14] MEDS: DIVALPROEX SODIUM 125 MG CAP.SPRINK PO SCH ×3 (09:09→21:14)
[2021-11-14] MEDS: PRIMIDONE 50 MG TABLET PO SCH (09:09)
[2021-11-14] MEDS: risperiDONE-M 0.5 MG TAB.RAPDIS PO SCH ×3 (09:09→21:13)
[2021-11-14] MEDS: PROPRANOLOL HCL 10 MG TABLET PO SCH ×2 (09:10→16:24)
--- NOTE | 2021-11-14 13:19 | NUR ---
SNF Contact: SW contacted [facility] ([phone]) spoke with Sammi GOMEZ ([phone]) who stated pt is accepted and they will take pt on 11/16 as they have a bed available then.
[2021-11-14 16:00] VITALS: BP 116/64
--- NOTE | 2021-11-14 18:50 | NUR ---
RN CLOSING NOTE PATIENT REMAINED STABLE THROUGHOUT SHIFT. OF THIS TIME, PATIENT IS SITTING ON SONAL-CHAIR IN THE ACTIVITY ROOM, COOPERATIVE AND COMPLIANT TO MEDICATION REGIMEN. BREATHING UNLABORED AND NOT IN ANY FORM OF DISTRESS. ALL HOSPITAL SAFETY PRECAUTIONS IN PLACE. WILL ENDORSE TO DELI COOK NURSE.
--- NOTE | 2021-11-14 19:46 | NUR ---
GPS RN OPENING NOTES: RECEIVED PATIENT IN DAY ROOM SITTING IN SONAL CHAIR. A/O X1-2. PATIENT HAS LOOSE ASSOCIATIONS, DISORGANIZED, DISORIENTED, CONFUSED, NEEDS FREQUENT REDIRECTION, HAS POOR INSIGHT AND POOR JUDGEMENT. PATIENT DAUGHTER IS CURRENTLY VISITING WITH PATIENT. PATIENT HAS NO S/S OF DISTRESS. RESPIRATION EVEN AND UNLABORED WITH EQUAL RISE AND FALL OF THE CHEST, ON ROOM AIR. OFFERED FLUID AND SNACKS TOLERATED. WILL CONTINUE TO MONITOR Q15 FOR MOOD, SAFETY AND BEHAVIOR.
[2021-11-14 20:10] VITALS: BP 119/57
[2021-11-14] MEDS: BENZTROPINE MESYLATE (1 MG) 1 MG TABLET PO SCH (21:12)
[2021-11-14] MEDS: ATORVASTATIN 40 MG TABLET PO SCH ×2 (21:15→22:00)
--- NOTE | 2021-11-14 21:18 | NUR ---
GPS RN NOTES: COGENTIN 0.5MG WASTED PER PARTIAL DOSE ORDER.
--- NOTE | 2021-11-14 22:20 | NUR ---
GPS RN NOTES: PATIENT SPIT OUT 2200 LIPITOR 40MG 2TABS. PATIENT TOOK MEDICATION AND THEN SPIT IT OUT.
[2021-11-15 08:00] VITALS: BP 135/81
[2021-11-15] MEDS: DIVALPROEX SODIUM 125 MG CAP.SPRINK PO SCH ×3 (08:25→21:45)
[2021-11-15] MEDS: PROPRANOLOL HCL 10 MG TABLET PO SCH ×2 (08:26→16:19)
[2021-11-15] MEDS: risperiDONE-M 0.5 MG TAB.RAPDIS PO SCH ×3 (08:26→21:46)
[2021-11-15] MEDS: PRIMIDONE 50 MG TABLET PO SCH (08:26)
[2021-11-15] MEDS: LORAZEPAM 0.5 MG TABLET PO PRN (12:16)
--- NOTE | 2021-11-15 12:21 | NUR ---
RN-NOTES NOTED PATIENT WITH SCREAMING AND YELLING IN THE DAY ROOM, ATIVAN 0.5MG P.O GIVEN PRN ORDER. WILL CONT. MONITORING FOR SAFETY AND BEHAVIOR.
--- NOTE | 2021-11-15 13:20 | NUR ---
RN-NOTES PATIENT IN THE DAY ROOM UP IN THE SONAL CHAIR,CALM AND QUIET,NO ACUTE DISTRESS NOTED.
[2021-11-15 16:00] VITALS: BP 135/65
--- NOTE | 2021-11-15 17:42 | NUR ---
RN-NOTES PATIENT IN THE DAY ROOM UP IN THE SONAL CHAIR,AWAKE A/O X1,NOTED WITH HYPERVERBAL EASILY ANGRY BEHAVIOR. NEEDS FREQUENT REDIRECTIONS AND ORIENTATION.ALL NEEDS ATTENDED AND ANTICIPATED. MINIMAL ASSIST WITH ADL'S. COMPLIANT WITH MEDICATIONS. ALL NEEDS ATTENDED AND ANTICIPATED. WILL CONT. MONITORING FOR SAFETY AND BEHAVIOR. WILL ENDORSE TO INCOMING NURSE FOR CONTINUITY OF CARE.
--- NOTE | 2021-11-15 19:33 | NUR ---
GPS RN OPENING NOTES: RECEIVED PATIENT IN HALLWAY SITTING IN SONAL CHAIR. A/O X1-2. LABILE, PASSIVE, WITHDRAWN, DISORGANIZED, DISORIENTED, CONFUSED, HAS POOR INSIGHT AND POOR JUDGEMENT. NEEDS FREQUENT REDIRECTION. PATIENT HAS NO S/S OF DISTRESS. RESPIRATION EVEN AND UNLABORED WITH EQUAL RISE AND FALL OF THE CHEST, ON ROOM AIR. OFFERED FLUID AND SNACKS TOLERATED. WILL CONTINUE TO MONITOR Q15 FOR MOOD, SAFETY AND BEHAVIOR.
[2021-11-15 20:00] VITALS: BP 142/78
[2021-11-15] MEDS: BENZTROPINE MESYLATE (1 MG) 1 MG TABLET PO SCH (21:45)
[2021-11-15] MEDS: ATORVASTATIN 40 MG TABLET PO SCH (22:00)
--- NOTE | 2021-11-15 22:00 | NUR ---
GPS RN NOTES: COGENTIN 0.5MG WASTED PER PARTIAL DOSE ORDER.
--- NOTE | 2021-11-15 22:01 | NUR ---
GPS RN NOTES: PATIENT REFUSED LIPITOR 40MG 2TABS AT 2200.
[2021-11-16 08:00] VITALS: BP 122/59
--- NOTE | 2021-11-16 08:01 | NUR ---
SW Discharge Note: Patient will discharge to [facility] [place] [address] [place] [address]; ([phone]). Please arrange ambulance at 2PM. PATRICIA Chapa ([phone]) accepted pt and stated pt is welcomed today. Pts granddaughter Karley ([phone]) who is agreeable of discharge. Pt denies suicidal or homicidal ideation. Pt denies visual/auditory hallucinations. Pt will follow up with ([facility]) Dr. Tabor [address] [place] [address]; ([phone]). and pt will follow up with (Psychiatrist) Dr. Alcantara [address] [place] [address]; ([phone]) at the facility the facility. Patient present with euthymic mood and congruent affect.
[2021-11-16 10:31] VITALS: BP 122/59
[2021-11-16] MEDS: DIVALPROEX SODIUM 125 MG CAP.SPRINK PO SCH (10:31)
[2021-11-16] MEDS: PRIMIDONE 50 MG TABLET PO SCH (10:31)
[2021-11-16] MEDS: PROPRANOLOL HCL 10 MG TABLET PO SCH (10:31)
[2021-11-16] MEDS: risperiDONE-M 0.5 MG TAB.RAPDIS PO SCH (10:32)
--- NOTE | 2021-11-16 13:14 | NUR ---
RN NOTES FOR D/C Patient dischargeD to [facility] located at [address] [place] [address]; ([phone]). Glenny RN logging supervisor contacted and report given, 2 blister packing machine tender transferred pt out and all belongings taken, safe transfer from bed to gurney to EMT ambulance truck to facility, Pts granddaughter Karley present and followed pt to facility her contact info is - ([phone]) Pt denies any suicidal or homicidal ideation. Pt denies visual/auditory hallucinations. Pt will follow up with ([facility]) Dr. Tabor [address] [place] [address]; ([phone]). information for the f/u is in the packet was noted to rn logging supervisor of facility and grand daughter aware, and pt will also follow up with (Psychiatrist) Dr. Alcantara [address] [place] [address]; ([phone]) at the facility the facility with nursings help to have another follow and plan in order, Patient present with euthymic mood and congruent affect and cooperative for the transfer at 11:15 am today
== END 2021-11-16 11:15 | DRG 885 ==
LOC: GPS 02:09
PROVIDERS: ADMIT Psychiatry & Neurology Psychosomatic Medicine; ATTEND Nurse Practitioner Family
DX: F29 Unspecified psychosis not due to a substance or known physiological condition (principal); F01.50 Vascular dementia, unspecified severity, without behavioral disturbance, psychotic disturbance, mood disturbance, and anxiety; G93.41 Metabolic encephalopathy; N39.0 Urinary tract infection, site not specified; M48.56XA Collapsed vertebra, not elsewhere classified, lumbar region, initial encounter for fracture; F33.9 Major depressive disorder, recurrent, unspecified; F02.80 Dementia in other diseases classified elsewhere, unspecified severity, without behavioral disturbance, psychotic disturbance, mood disturbance, and anxiety; G30.9 Alzheimer's disease, unspecified; G89.29 Other chronic pain; I10 Essential (primary) hypertension; Z73.6 Limitation of activities due to disability; M16.11 Unilateral primary osteoarthritis, right hip; Z91.81 History of falling; Z20.822 Contact with and (suspected) exposure to COVID-19
CPT/HCPCS: 36415; 80048-TC; 80061-TC; 83735-TC; 84100-TC; 85025-TC; 97116-TC; 97530-TC; J3490